=== PATIENT | male | born 1955 | race Two or more races ===

== ENCOUNTER 2024-09-11 10:59 | Inpatient (IN) | payer OTHER ==
[~2024-09-11] VITALS: Ht 175.3 cm; Wt 92.3 kg
[2024-09-11] VITALS (21 sets, daily range): BP systolic 106–174; BP diastolic 74–96; PULSE 95–121; RESP 15–38; TEMP 97.9–99.4; O2SAT 90–97
--- NOTE | 2024-09-11 11:14 | ECG ---
[facility] Test Date: 2024-09-11 Test Time: 11:10:40 Pat Name: BONG BARROS Department: ER Room: 0287T Gender: M Senior Education Specialist: ERICKA : 1955 Requested By: KALIN BOYD Order Number: [id number] Reading MD: Corby Villagomez Measurements Intervals [place] Rate: 118 P: 41 NH: 150 QRS: -51 QRSD: 110 T: 61 QT: 325 QTc: 456 Interpretive Statements Sinus tachycardia Inferior infarct, old Baseline wander in lead(s) I,aVR Electronically Signed On 09-13-2024 21:17:28 PDT by Corby Villagomez Please click the below link to view image of tracing.
[2024-09-11] MEDS: IPRATROPIUM BROM 0.5 MG/2.5ML INH SOL NEB ONE (11:32)
[2024-09-11] MEDS: ALBUTEROL SULF 2.5 MG/0.5ML(0.5%) NEB SOLN NEB ONE (11:33)
[2024-09-11 11:49] LABS: Chloride 104 mmol/L (98-107); Potassium 4.5 mmol/L (3.5-5.1)
[2024-09-11 11:50] LABS: Anion Gap 10 (5-15); Calcium 9.9 mg/dL (8.7-10.4); Carbon Dioxide 21 mmol/L (20-31)
[2024-09-11 11:54] LABS: Basophils # (auto) 0.1 10 ^3/uL (0-0.2); Platelet Count (auto) 121 10^3/uL (140-450); White Blood Cell 10.3 10^3/uL (4.4-10.8)
[2024-09-11 11:55] LABS: BUN/Creatinine Ratio 14.4 (10.0-20.0); Basophils % (auto) 0.8 % (0.0-2.0); Blood Urea Nitrogen 23 mg/dL (9-23); Eosinophils # (auto) 0.1 10 ^3/uL (0-0.8); Eosinophils % (auto) 0.5 % (0.0-7.0); Hematocrit 52.2 % (41.0-53.0); Hemoglobin 18.4 g/dL (13.5-17.5); Lymphocytes # (auto) 1.3 10 ^3/uL (0.4-5.4); Mean Corpuscular Hemoglobin 34.4 pg (28.0-32.0); Mean Corpuscular Hgb Conc. 35.2 g/dL (32.0-36.0); Mean Corpuscular Volume 97.6 fL (80.0-100.0); Monocytes # (auto) 1.4 10 ^3/uL (0-1.3); Monocytes % (auto) 13.2 % (0.0-12.0); Neutrophils # (auto) 7.5 10 ^3/uL (1.6-8.6); Neutrophils % (auto) 72.5 % (37.0-80.0); Nucleated Red Blood Cells % 0.1 %; Red Blood Cells 5.35 10^6/uL (4.5-5.90); Red Cell Distribution Width 13.6 % (11.8-14.3)
[2024-09-11 12:00] LABS: Glucose 124 mg/dL (74-106); Sodium 135 mmol/L (136-145)
[2024-09-11 12:01] LABS: INR 1.08 (0.9-1.15); Partial Thromboplastin Time 31.4 SEC (24.5-34.5); Prothrombin Time 11.4 sec (9.3-11.8)
--- NOTE | 2024-09-11 12:10 | ED.PDOC ---
SOB-HPI HPI Comments 69 y/o M presents with c/o shortness of breath, nonproductive cough, and chest- wall discomfort described as tightness. Patient endorses on having symptoms for the past 2-3 weeks, that worsened after doing yard work this morning. He reports only history of Hepatitis C, HTN, and Bipolar Disorder. Denies any congestion, fever, chills, edema or further associated symptoms. Upon arrival to ED, patient was found with a SpO2 of 92%RA. Chief Complaint: Shortness of Breath Time Seen by MD: 11:00 Primary Care Provider: GERMAINE Reviewed notes: Nurses Notes, Medications, Allergies Information Source: Patient Mode of Arrival: Ambulatory Severity: Moderate Timing: Weeks Duration: Since onset Context: With Light Exertion Past Medical History PAST MEDICAL HISTORY: HTN, Liver (Hepatitis C) Past Medical History (Other): Bipolar Disorder Surgical History: Appendectomy, Hernia Repair (3x), Tonsillectomy Surgical History (Other): Bilateral shoulder surgery Family History Family History: Unknown Social History Smoker: Non-Smoker Alcohol: Denies ETOH Use Drugs: Denies Drug Use Lives In: Home All Other Systems: Reviewed and Negative (Comprehensive systems review obtained and negative except for what is stated in the HPI.) Physical Exam General Appearance: Mild Distress HEENT: Other (Pupils and face symmetric. Moist mucous membranes. Mild perioral cyanosis) Neck: Full Range of Motion, Normal Inspection Respiratory: Accessory Muscle Use, Lungs Clear, Normal Breath Sounds, Respiratory Distress (Mild) Cardiovascular: No Edema, No JVD, Tachycardia Breast Exam: Deferred Gastrointestinal: Non Tender, Soft Genitalia: Deferred Pelvic: Deferred Rectal: Deferred Extremities: No calf tenderness, Normal inspection, Normal range of motion, Non-tender, No pedal edema Neurologic: Alert (Oriented x4), Normal Affect, Normal Mood, Other (Ambulatory) Cerebellar Function: NOT DONE Reflexes: NOT DONE Skin: Dry, Pallor, Warm Lymphatic: NOT DONE EKG EKG : Comments Sinus tach, rate 118, normal intervals, left axis deviation, possible old inferior infarct, nonspecific T change. Was a procedure done? Was a procedure done?: No Differential Dx Differential Diagnosis: Anxiety, Bronchitis, CHF, COPD, Hyperventilation, Myocardial infarction, Panic Attack, Pneumonia, Pulmonary Embolism, Respiratory Distress, URI X-Ray, Labs, Meds, VS Vital Signs Date Time Temp Pulse Resp B/P (MAP) Pulse Ox O2 Delivery O2 Flow Rate FiO2 09/11/24 16:00 100 09/11/24 15:07 100 24 96 Nasal Cannula* 2 28 09/11/24 15:07 100 19 137/87 (104) 94 09/11/24 14:26 98.5 116 18 99/69 (79) 96 98.5 09/11/24 12:17 09/11/24 12:10 118 09/11/24 11:35 16 98 Room Air* 0 21 09/11/24 11:24 Nasal Cannula* 2 28 09/11/24 11:23 97.7 113 19 109/72 (84) 96 97.7 09/11/24 11:10 118 09/11/24 11:04 98.1 123 22 106/68 (81) 92 98.1 09/11/24 11:04 22 92 Room Air* 0 21 Lab Test 09/11/24 12:27 09/11/24 11:46 09/11/24 11:20 Range/Units Troponin I High Sensitivity 22 19 </=54 ng/L Influenza Type A Antigen Negative Negative Influenza Type B Antigen Negative Negative SARS-CoV-2 Antigen (Rapid) Negative NEGATIVE White Blood Count 10.3 4.4-10.8 10^3/uL Red Blood Count 5.35 4.5-5.90 10^6/uL Hemoglobin 18.4 H 13.5-17.5 g/dL Hematocrit 52.2 41.0-53.0 % Mean Corpuscular Volume 97.6 80.0-100.0 fL Mean Corpuscular Hemoglobin 34.4 H 28.0-32.0 pg Mean Corpuscular Hemoglobin Concent 35.2 32.0-36.0 g/dL Red Cell Distribution Width 13.6 11.8-14.3 % Platelet Count 121 L 140-450 10^3/uL Mean Platelet Volume 8.0 6.9-10.8 fL Neutrophils (%) (Auto) 72.5 37.0-80.0 % Lymphocytes (%) (Auto) 13.0 10.0-50.0 % Monocytes (%) (Auto) 13.2 H 0.0-12.0 % Eosinophils (%) (Auto) 0.5 0.0-7.0 % Basophils (%) (Auto) 0.8 0.0-2.0 % Neutrophils # (Auto) 7.5 1.6-8.6 10 ^3/uL Lymphocytes # (Auto) 1.3 0.4-5.4 10 ^3/uL Monocytes # (Auto) 1.4 H 0-1.3 10 ^3/uL Eosinophils # (Auto) 0.1 0-0.8 10 ^3/uL Basophils # (Auto) 0.1 0-0.2 10 ^3/uL Nucleated Red Blood Cells 0.1 % Prothrombin Time 11.4 9.3-11.8 sec Prothrombin Time INR 1.08 0.9-1.15 Activated Partial Thromboplast Time 31.4 24.5-34.5 SEC D-Dimer, Quantitative 22.02 H 0.0-0.49 mg/L FEU Sodium Level 135 L 136-145 mmol/L Potassium Level 4.5 3.5-5.1 mmol/L Chloride Level 104 98-107 mmol/L Carbon Dioxide Level 21 20-31 mmol/L Anion Gap 10 5-15 Blood Urea Nitrogen 23 9-23 mg/dL Creatinine 1.60 H 0.700-1.30 mg/dL Glomerular Filtration Rate Calc 46 >90 mL/min BUN/Creatinine Ratio 14.4 10.0-20.0 Serum Glucose 124 H 74-106 mg/dL Lactic Acid Level 1.6 0.4-2.0 mmol/L Calcium Level 9.9 8.7-10.4 mg/dL B-Type Natriuretic Peptide 15.90 0-100 pg/mL Current Medications Medications (Trade) Dose Ordered Sig/Serenity Route Start Time Stop Time Status Last Admin Albuterol (Ventolin Medneb) 5 mg ONCE ONCE NEB 09/11/24 11:15 09/11/24 11:16 DC 09/11/24 11:33 Ipratropium Williamson (Atrovent Medneb) 0.5 mg ONCE ONCE NEB 09/11/24 11:15 09/11/24 11:16 DC 09/11/24 11:32 Sodium Chloride 1,000 ml @ 1,000 mls/hr Q1H ONCE IV 09/11/24 13:45 09/11/24 14:56 DC 09/11/24 14:29 Heparin Sodium (Porcine) 7,000 units ONCE ONCE IV 09/11/24 14:30 09/11/24 14:31 DC 09/11/24 15:57 Heparin Sodium/ Dextrose 250 ml @ 16 mls/hr [id number] IV 09/11/24 14:30 09/11/24 16:06 PROCEDURE(s): CXRP - CHEST PORTABLE REASON: sob ORDER NUMBER(s): [id number], ACCESSION NUMBER(s): [id number] EXAM: XY CHEST PORTABLE Indication: sob Technique: Single frontal view of the chest was obtained Comparison: None FINDINGS: Lines and Tubes: None Lungs: No focal consolidation. Pleura: No effusion. No pneumothorax. Cardiomediastinal contours: Unremarkable. Atherosclerotic vascular calcifications of the thoracic aorta are noted. Bones: No acute osseous abnormality. IMPRESSION: No acute cardiopulmonary disease. EDURE(s): CTACH - CT ANGIO CHEST CONTRAST REASON: hypoxia sob hi dimer r/o pe ORDER NUMBER(s): [id number], ACCESSION NUMBER(s): [id number] CT CT ANGIO CHEST CONTRAST INDICATION: hypoxia sob hi dimer r/o pe : 69 old Male hypoxia sob hi dimer r/o pe EXAM DATE: 09/11/2024 01:55 PM COMPARISON: None RADIATION DOSE: CTDIvol: 18.5 mGy, DLP: 673.72 mGy*cm PROCEDURE: Helical CT angiographic images were obtained of the chest with intravenous contrast. Sagittal and coronal reconstructions as well as MIPS are provided. Maximum intensity projections performed (MIPs) were performed for CTA. ADDITIONAL IMAGES / REFORMATS: None All CT scans at this medical facility are performed using dose modulation te chniques as appropriate to a performed exam including the following: Automated exposure control was utilized; adjustment of the MA and/or KV according to patient size; and use of iterative reconstruction technique. FINDINGS: Bones: Scattered degenerative changes are noted in the visualized osseous structures. Visualized Abdomen: Unremarkable. Chest Wall: Normal. Soft tissues: Normal. Mediastinum: Normal. Heart: Mild RV dilation. Vessels: Large filling defects in the visualized pulmonary arteries including the segmental and subsegmental pulmonary arteries. Prominent noncalcified mural thrombus in the thoracic aorta. Lymph Nodes: Normal. Pleura: Normal. Airways: Normal. Lung: Bibasilar atelectasis. Other: None IMPRESSION: Saddle pulmonary embolism in the visualized bilateral pulmonary arteries including the segmental and subsegmental pulmonary arteries. Mild RV dilation. Critical Result: Pulmonary Emboli Findings discussed with Dr. Saavedra at 09/11/2024 02:27 PM and acknowledged receipt and understanding of the findings. X-Ray, Labs, Meds, VS Comment 69-year-old male with a history of hypertension, liver disease and bipolar disorder complaining of chest discomfort, shortness of breath and dyspnea on mild exertion Vitals remarkable for heart rate 118 Exam remarkable for tachycardia and clear lungs with mild respiratory distress Rhythm strip independently interpreted by me: Sinus tach, rate one hundred eighteen, no ectopy. Chest x-ray IMPRESSION: No acute cardiopulmonary disease. CTA chest: IMPRESSION: Saddle pulmonary embolism in the visualized bilateral pulmonary arteries including the segmental and subsegmental pulmonary arteries. Mild RV dilation. Critical Result: Pulmonary Emboli CBC unremarkable, basic metabolic panel remarkable for creatinine 1.6, BNP and 2 serial troponins negative, lactate normal, D-dimer 22.02 Patient treated with the following in the ED: Albuterol 5 mg/Atrovent 0.5 mg nebulized, 1 L 0.9 normal saline IV bolus I discussed the risks, benefits and alternatives to treatment with regard to CT angio chest to rule out PE in light of patient's creatinine of 1.6. Patient and agreed that he should proceed with CT. Case discussed with Dr. Biggs radiology who felt the patient is a candidate for thrombectomy. He recommended starting the patient on heparin and obtaining cardiac echo, as there is some evidence of right heart strain on CT. Case discussed with [facility] who authorized us to keep the patient here. Authorization [id number] Time of 1ST Reevaluation: 11:30 Reevaluation 1ST: Unchanged Patient Education/Counseling: Diagnosis, Treatment Family Education/Counseling: No Family Present Departure 1 Departure Time of Disposition: 14:00 Impression: Primary Impression: Saddle pulmonary embolus Qualified Codes: I26.92 - Saddle embolus of pulmonary artery without acute cor pulmonale Disposition: ADMITTED INPATIENT Admit to: [facility] Condition: Serious Critical Care Note Critical Care Time?: Yes (1 hr-critical care time only) Critical care comment: Critical care time including multiple bedside re-evaluations, review of lab and imaging studies, and discussion of the case with the admitting provider. Patient is high risk for hemodynamic and/or respiratory decompensation. Stability Stability form required: No Heart Score Heart Score: Heart Score Response (Comments) Value History N/A 0 EKG N/A 0 Age N/A 0 Risk Factors N/A 0 Troponin N/A 0 Total 0 I personally scribed for KALIN MORENO MD ([email or web address]) on 09/11/24 at 12:10. Electronically submitted by Brent Flowers ([email or web address]). I personally scribed for KALIN MORENO MD ([email or web address]) on 09/11/24 at 12: 17. Electronically submitted by Brent Flowers ([email or web address]). I personally scribed for KALIN MORENO MD ([email or web address]) on 09/11/24 at 21:18. Electronically submitted by Brent Flowers ([email or web address]). KALIN MORENO MD September 11, 2024 12:10
[2024-09-11 12:40] LABS: COVID19 ANTIGEN SOFIA FIA NEGATIVE (NEGATIVE); Rapid Influenza A Negative (Negative); Rapid Influenza B Negative (Negative)
--- NOTE | 2024-09-11 12:59 | DVH ---
EXAM: XY CHEST PORTABLE Indication: sob Technique: Single frontal view of the chest was obtained Comparison: None FINDINGS: Lines and Tubes: None Lungs: No focal consolidation. Pleura: No effusion. No pneumothorax. Cardiomediastinal contours: Unremarkable. Atherosclerotic vascular calcifications of the thoracic ao rta are noted. Bones: No acute osseous abnormality. IMPRESSION: No acute cardiopulmonary disease.
[2024-09-11] MEDS: IOHEXOL 350 MG/ML 100ML IJ ONE (14:29)
[2024-09-11] MEDS: SODIUM CHLORIDE 0.9% 1,000 ML IV ONE (14:29)
--- NOTE | 2024-09-11 14:35 | DVH ---
CT CT ANGIO CHEST CONTRAST INDICATION: hypoxia sob hi dimer r/o pe : 69 old Male hypoxia sob hi dimer r/o pe EXAM DATE: 09/11/2024 01:55 PM COMPARISON: None RADIATION DOSE: CTDIvol: 18.5 mGy, DLP: 673.72 mGy*cm PROCEDURE: Helical CT angiographic images were obtained of the chest with intravenous contrast. Sagi ttal and coronal reconstructions as well as MIPS are provided. Maximum intensity projections performe d (MIPs) were performed for CTA. ADDITIONAL IMAGES / REFORMATS: None All CT scans at this medical facility are performed using dose modulation techniques as appropriate t o a performed exam including the following: Automated exposure control was utilized; adjustment of th e MA and/or KV according to patient size; and use of iterative reconstruction technique. FINDINGS: Bones: Scattered degenerative changes are noted in the visualized osseous structures. Visualized Abdomen: Unremarkable. Chest Wall: Normal. Soft tissues: Normal. Mediastinum: Normal. Heart: Mild RV dilation. Vessels: Large filling defects in the visualized pulmonary arteries including the segmental and subse gmental pulmonary arteries. Prominent noncalcified mural thrombus in the thoracic aorta. Lymph Nodes: Normal. Pleura: Normal. Airways: Normal. Lung: Bibasilar atelectasis. Other: None IMPRESSION: Saddle pulmonary embolism in the visualized bilateral pulmonary arteries including the segmental and subsegmental pulmonary arteries. Mild RV dilation. Critical Result: Pulmonary Emboli Findings discussed with Dr. Saavedra at 09/11/2024 02:27 PM and acknowledged receipt and understanding of t findings.
--- NOTE | 2024-09-11 15:01 | CONS ---
Pharmacy Clinical Information: BOLUS 7000 UNITS HEPARIN IV, THEN INITIATE HEPARIN DRIP AT RATE 1600 UNITS/HR = 16 ML/HR PER PE/VTE PROTOCOL, PATIENT WT 86.9 KG APTT DRAW SCHEDULED FOR 2100 PER RX PROTOCOL STEPHANIE SIDHU PHARMACIST September 11, 2024 15:01
--- NOTE | 2024-09-11 15:39 | DVHHP2 ---
History of Present Illness Reason for Visit: sob History of Present Illness 69-year-old male with a past medical history of hypertension, chronic liver disease, hepatitis, bipolar disorder, depression, and chronic kidney disease, as well as a surgical history of tonsillectomy, hernia repair, bilateral shoulder surgery, and tonsillectomy, who presents with progressive shortness of breath ongoing for the past month. He reports worsening dyspnea with exertion, dizziness, and near-syncope, especially during routine activities such as yard work, which prompted today�s ED visit. While working outside, he developed chest tightness and a dry cough, without associated fever, chest pain, hemoptysis, or prior history of thromboembolic events. He denies any smoking or illicit drug use. In the emergency department, he was noted to be hypoxic with an SpO2 of 92% on room air. CT angiogram of the chest revealed a large saddle pulmonary embolism with involvement of bilateral segmental pulmonary arteries and evidence of mild right ventricular dilation. Initial labs were notable for creatinine 1.60, sodium 135, glucose 124, BNP 15.90, lactate 1.6, and CBC unremarkable. Troponins were negative x2, and influenza/COVID testing was negative. Lower extremity ultrasound confirmed a DVT. IR (Dr. Biggs) was consulted and deemed the patient a candidate for thrombectomy. He was started on a heparin infusion and is being admitted to the ICU for continued monitoring and possible interven tion to be completed in am. Past Medical History see hpi above Past Surgical History see hpi above Family History Reviewed, non-contributory to the management of this case. Past Social History The patient lives at home, denies smoking, alcohol or illicit drugs abuse. Review of Systems Constitutional: No: Fever, Chills, Sweats, Weakness, Malaise, Other Eyes: No: Pain, Vision change, Conjunctivae inflammation, Eyelid inflammation, Other, Redness ENT: No: Ear pain, Ear discharge, Nose pain, Nose discharge, Nose congestion, Mouth pain, Mouth swelling, Throat pain, Throat swelling, Other Respiratory: Cough, Shortness of breath, SOB with excertion; No: Dry, Wheezing, Hemoptysis, Pleuritic Pain, Sputum, Wheezing, Other Cardiovascular: Chest Pain; No: Palpitations, Orthopnea, Paroxysmal Noc. Dyspnea, Edema, Lt Headedness, Other Gastrointestinal: No: Nausea, Vomiting, Abdominal Pain, Diarrhea, Constipation, Melena, Hematochezia, Other Genitourinary: No Dysuria, No Frequency, No Incontinence, No Hematuria, No Retention, No Other Musculoskeletal: No: other, neck pain, shoulder pain, arm pain, back pain, hand pain, leg pain, foot pain Skin: No: Rash, Lesions, Jaundice, Bruising, Other Neurological: No: Weakness, Numbness, Incoordination, Change in speech, Confusion, Seizures, Other Allergies: Coded Allergies: Codeine (Verified Allergy, Unknown, 09/11/24) Penicillins (Verified Allergy, Unknown, 09/11/24) Medications Current Medications Medications Dose Ordered Sig/Serenity Route Start Time Stop Time Status Last Admin Dose Admin Heparin Sodium/ Dextrose 250 ml @ 16 mls/hr [id number] IV 09/11/24 14:30 Exam Vital Signs Vital Signs Date Time Temp Pulse Resp B/P (MAP) Pulse Ox O2 Delivery O2 Flow Rate FiO2 09/11/24 15:07 100 24 96 Nasal Cannula* 2 28 09/11/24 15:07 137/87 (104) 09/11/24 14:26 98.5 98.5 General Appearance: Alert, Oriented X3, Cooperative, No acute distress HEENT: Atraumatic, PERRLA, EOMI, Mucous membr. moist/pink Respiratory: Other (dimished lung sounds throughout ) Cardiovascular: Regular rate, Normal S1, Normal S2, No murmurs Abdominal: Normal bowel sounds, Soft, No tenderness, No hepatospenomegaly, No masses Extremities: No clubbing, No cyanosis, No edema, Normal pulses, No tenderness/swelling Skin: No rashes, No breakdown, No significant lesion Neuro: Normal gait, Normal speech, Strength at 5/5 X4 ext, Normal tone, Sensation intact, Cranial nerves 3-12 NL Psych/Mental Status: Mental status NL, Mood NL Labs/Xrays Labs Test 09/11/24 12:27 09/11/24 11:46 09/11/24 11:20 Range/Units Troponin I High Sensitivity 22 </=54 ng/L Influenza Type A Antigen Negative Negative Influenza Type B Antigen Negative Negative SARS-CoV-2 Antigen (Rapid) Negative NEGATIVE White Blood Count 10.3 4.4-10.8 10^3/uL Red Blood Count 5.35 4.5-5.90 10^6/uL Hemoglobin 18.4 H 13.5-17.5 g/dL Hematocrit 52.2 41.0-53.0 % Mean Corpuscular Volume 97.6 80.0-100.0 fL Mean Corpuscular Hemoglobin 34.4 H 28.0-32.0 pg Mean Corpuscular Hemoglobin Concent 35.2 32.0-36.0 g/dL Red Cell Distribution Width 13.6 11.8-14.3 % Platelet Count 121 L 140-450 10^3/uL Mean Platelet Volume 8.0 6.9-10.8 fL Neutrophils (%) (Auto) 72.5 37.0-80.0 % Lymphocytes (%) (Auto) 13.0 10.0-50.0 % Monocytes (%) (Auto) 13.2 H 0.0-12.0 % Eosinophils (%) (Auto) 0.5 0.0-7.0 % Basophils (%) (Auto) 0.8 0.0-2.0 % Neutrophils # (Auto) 7.5 1.6-8.6 10 ^3/uL Lymphocytes # (Auto) 1.3 0.4-5.4 10 ^3/uL Monocytes # (Auto) 1.4 H 0-1.3 10 ^3/uL Eosinophils # (Auto) 0.1 0-0.8 10 ^3/uL Basophils # (Auto) 0.1 0-0.2 10 ^3/uL Nucleated Red Blood Cells 0.1 % Prothrombin Time 11.4 9.3-11.8 sec Prothrombin Time INR 1.08 0.9-1.15 Activated Partial Thromboplast Time 31.4 24.5-34.5 SEC D-Dimer, Quantitative 22.02 H 0.0-0.49 mg/L FEU Sodium Level 135 L 136-145 mmol/L Potassium Level 4.5 3.5-5.1 mmol/L Chloride Level 104 98-107 mmol/L Carbon Dioxide Level 21 20-31 mmol/L Anion Gap 10 5-15 Blood Urea Nitrogen 23 9-23 mg/dL Creatinine 1.60 H 0.700-1.30 mg/dL Glomerular Filtration Rate Calc 46 >90 mL/min BUN/Creatinine Ratio 14.4 10.0-20.0 Serum Glucose 124 H 74-106 mg/dL Lactic Acid Level 1.6 0.4-2.0 mmol/L Calcium Level 9.9 8.7-10.4 mg/dL B-Type Natriuretic Peptide 15.90 0-100 pg/mL Assessment/Plan Assessment/Plan 69-year-old male with a saddle pulmonary embolism and confirmed DVT, with mild RV strain and ongoing hypoxia. History of CKD, liver disease, and psychiatric comorbidities. acute Saddle Pulmonary Embolism with RV Strain Found on CTA of the chest ordered Heparin protocol bolus initiated in the ER PTT every 6 hours Monitor for bleeding Order echo to check heart strain Follow-up results Order Doppler bilateral lower extremity rule out DVT Monitor for respiratory distress Keep sats greater than 92%., cont o2 er spoke with IR Dr. Biggs felt pt was candidate for thrombectomy, will need to follow up consider cards consult if abnormal echo Admit to ICU Repeat ABG if respiratory status deteriorates acute Deep Vein Thrombosis on left Lower extremity ultrasound positive Plan: Continue anticoagulation with IV heparin Monitor CBC, coagulation panel daily No thrombolytics unless indicated by clinical deterioration will need to consider hematology workup acute Hypoxia resp failure likely from pe SpO2 92% on RA, stable on oxygen Plan: Oxygen via nasal cannula to maintain sats >94% Monitor ABGs and respiratory rate Incentive spirometry influenza and covid negative chronic problems Chronic Kidney Disease Avoid nephrotoxic agents Monitor renal function daily Chronic Liver Disease / Hepatitis Bipolar Disorder and Depression FEN / PROPHYLAXIS (PPx) Fluids/Electrolytes/Nutrition IV fluids as needed, monitor for volume overload Advance diet as tolerated DVT Prophylaxis Therapeutic anticoagulation already in place Avoid mechanical prophylaxis due to DVT GI Prophylaxis Pantoprazole 40 mg IV daily (stress ulcer prophylaxis in ICU) DISPOSITION Admit to ICU for management of saddle PE with RV strain and DVT. Monitor hemodynamics and respiratory status. Echocardiogram and interventional evaluation pending. Initiate full anticoagulation, and prepare for thrombectomy if indicated Plan discussed with: Patient Date of Service: September 11, 2024 Billing Provider: DARSHANA DUMONT DNP Common Visit Codes: [id number] INP/OBS CARE (HIGH), [id number] CARE 30- 74 MIN (Total critical care time: Approximately 45 minutes This critical care time included obtaining a history; examining the patient; pulse oximetry; ordering and review of studies; arranging urgent treatment with development of a management plan; evaluation of patient's response to treatment; frequent reassessment; and, discussions with other providers.) DARSHANA DUMONT DNP September 11, 2024 15:39
[2024-09-11] MEDS: HEPARIN SODIUM (PORCINE) 5000 UNITS/ML 1ML VIAL IV ONE (15:57)
[2024-09-11] MEDS: HEPARIN DRIP/D5W 100UNITS/ML 250 ML IV SCH ×2 (16:06→23:52)
[2024-09-11] MEDS ORDERED: MORPHINE SULFATE INJ 2 MG/ml SYRG IV PRN (16:15)
[2024-09-11] MEDS ORDERED: DOCUSATE SOD 100 MG CAP PO PRN (16:15)
[2024-09-11] MEDS ORDERED: NITROGLYCERIN 0.4 MG SL TAB SL PRN ×2 (16:15)
[2024-09-11] MEDS ORDERED: ONDANSETRON HCL 4 MG/2 ML VIAL IV PRN (16:15)
--- NOTE | 2024-09-11 16:54 | DVH ---
Bilateral lower extremity venous duplex Clinical History: eval for dvt Comparison: None Technique: Duplex Doppler evaluation of the deep venous systems of both lower extremities from the common femora l veins to the popliteal veins including color Doppler and spectral/pulsed waveform analysis was perf ormed. Findings: RIGHT SIDE: The common femoral vein demonstrates appropriate compressibility and waveform variability. There is compressibility/patency of the great saphenous vein at the proximal thigh. The femoral vein demonstrates appropriate compressibility and waveform variability. The deep femoral vein demonstrates appropriate compressibility and waveform variability. The popliteal vein demonstrates appropriate compressibility and waveform variability. There is normal compressibility at the tibioperoneal trunk. LEFT SIDE: The common femoral vein demonstrates appropriate compressibility and waveform variability. There is compressibility/patency of the great saphenous vein at the proximal thigh. The femoral vein demonstrates appropriate compressibility and waveform variability. The deep femoral vein demonstrates appropriate compressibility and waveform variability. The popliteal vein demonstrates intraluminal thrombus and noncompressibility.. There is noncompressibility of the posterior tibial vein. Impression: . No right DVT. Positive DVT in the left popliteal vein and posterior tibial vein. Findings discussed by lab animal technologist with DAMARIS Miller at time of exam.
[2024-09-11 16:58] LABS: INR 1.25 (0.9-1.15)
[2024-09-11 21:38] LABS: INR 1.19 (0.9-1.15); Prothrombin Time 12.4 sec (9.3-11.8)
[2024-09-11 21:47] LABS: Partial Thromboplastin Time > 139.0 SEC (24.5-34.5)
[2024-09-12] VITALS (29 sets, daily range): BP systolic 109–133; BP diastolic 48–90; PULSE 76–108; RESP 15–36; TEMP 97.9–99; O2SAT 90–97
[2024-09-12 05:18] LABS: Basophils # (auto) 0.1 10 ^3/uL (0-0.2); Eosinophils # (auto) 0.1 10 ^3/uL (0-0.8); Hemoglobin 15.8 g/dL (13.5-17.5); Lymphocytes # (auto) 1.4 10 ^3/uL (0.4-5.4); Monocytes # (auto) 1.2 10 ^3/uL (0-1.3); Nucleated Red Blood Cells % 0.1 %
[2024-09-12 05:23] LABS: Basophils % (auto) 1.2 % (0.0-2.0); Eosinophils % (auto) 1.7 % (0.0-7.0); Hematocrit 45.5 % (41.0-53.0); Lymphocytes % (auto) 17.5 % (10.0-50.0); Mean Corpuscular Hemoglobin 33.9 pg (28.0-32.0); Mean Corpuscular Hgb Conc. 34.7 g/dL (32.0-36.0); Mean Corpuscular Volume 97.8 fL (80.0-100.0); Neutrophils # (auto) 5.3 10 ^3/uL (1.6-8.6); Neutrophils % (auto) 64.6 % (37.0-80.0); Platelet Count (auto) 105 10^3/uL (140-450); Red Blood Cells 4.65 10^6/uL (4.5-5.90); Red Cell Distribution Width 13.4 % (11.8-14.3); White Blood Cell 8.1 10^3/uL (4.4-10.8)
[2024-09-12 05:30] LABS: Alanine Aminotransferase 37 U/L (7-40); Albumin 4.1 g/dL (3.2-4.8); Alkaline Phosphatase 57 U/L (46-116); Anion Gap 9 (5-15); Aspartate Aminotransferase 31 U/L (13-40); BUN/Creatinine Ratio 15.1 (10.0-20.0); Blood Urea Nitrogen 21 mg/dL (9-23); Carbon Dioxide 23 mmol/L (20-31); Chloride 106 mmol/L (98-107); Sodium 138 mmol/L (136-145); Total Protein 6.7 g/dL (5.7-8.2)
[2024-09-12 05:40] LABS: Bilirubin, Total 1.9 mg/dL (0.2-1.0); Glucose 122 mg/dL (74-106)
[2024-09-12 06:44] LABS: INR 1.12 (0.9-1.15); Prothrombin Time 11.7 sec (9.3-11.8)
[2024-09-12 06:58] LABS: Partial Thromboplastin Time 136.4 SEC (24.5-34.5)
[2024-09-12] MEDS: HEPARIN DRIP/D5W 100UNITS/ML 250 ML IV SCH ×2 (08:03→17:59)
--- NOTE | 2024-09-12 08:30 | CONS ---
Pharmacy Clinical Information: NEW RATE HEP 10 ML/HR (SINCE APTT = 136.4) @0502 ON 09/12 PER RX PROTOCOL. NEXT APTT DELVIS @1400 TODAY 09/12 JOE OCAMPO AWARE AND ALREADY STARTED 10 ML/HR @0802 NARCISO WHALEY PHARMACIST September 12, 2024 08:30
[2024-09-12] MEDS ORDERED: DULO20CA PO (09:04)
[2024-09-12] MEDS ORDERED: LISI10TA34 PO (09:04)
[2024-09-12] MEDS ORDERED: OLAN1TAB7 PO (09:04)
[2024-09-12] MEDS ORDERED: ASPirin 81 mg TAB PO SCH (10:00)
[2024-09-12 10:55] LABS: INR 1.13 (0.9-1.15); Partial Thromboplastin Time 54.3 SEC (24.5-34.5); Prothrombin Time 11.8 sec (9.3-11.8)
[2024-09-12] MEDS: IODIXANOL 320MG/ML 100ML BTL IV ONE (11:45)
[2024-09-12] MEDS: HEPARIN IN NS 1000Units/500mL 1,500 ML ONE (11:45)
[2024-09-12] MEDS: fentaNYL CITRATE 100 MCG/2 ML VL ONE (11:53)
[2024-09-12] MEDS: MIDAZOLAM HCL 2MG/2ML 2ml VIAL (1mg/ml) ONE (11:53)
[2024-09-12] MEDS: LIDOCAINE 2%HCL (LOCAL ANESTH.) INJ 20ML MDV ONE (11:53)
--- NOTE | 2024-09-12 13:43 | DVHPN2 ---
Progress Note Date Seen: September 12, 2024 Medical Necessity Reason Pt with a Central, PICC or Fol: No Subjective Patient reports: No new complaints Review of Systems: HEENT:Normal, CVS:Normal, RESPIRATORY:Normal, GI:Normal, :Normal, MSK:Normal, NEURO:Normal Objective vital signs Vital Sign Date Time Temp Pulse Resp B/P (MAP) Pulse Ox O2 Delivery O2 Flow Rate FiO2 09/12/24 08:00 88 18 94 Nasal Cannula* 2 28 09/12/24 08:00 97.9 119/77 (91) 97.9 Total Intake and Output 09/11/24 09/11/24 09/12/24 15:00 23:00 07:00 Intake Total 1109 ml 331 ml Output Total 1300 ml Balance 1109 ml -969 ml medications Current Medications Medications Dose Ordered Sig/Serenity Route Start Time Stop Time Status Last Admin Dose Admin Ondansetron HCl 4 mg Q4HP PRN IV 09/11/24 16:15 Docusate Sodium 100 mg BIDPRN PRN PO 09/11/24 16:15 Morphine Sulfate 2 mg Q4HPRN PRN IV 09/11/24 16:15 Nitroglycerin 0.4 mg Q5MP PRN SL 09/11/24 16:15 Aspirin 81 mg DAILY PO 09/12/24 10:00 Heparin Sodium/ Dextrose 250 ml @ 10 mls/hr Q24H IV 09/12/24 08:00 09/12/24 08:03 10 MLS/HR Pantoprazole Sodium 40 mg DAILY IV 09/13/24 10:00 Examination: GENERAL:Normal, HEENT:Normal, NECK:Normal, LUNGS:Normal, LUNGS:Abnormal (on oxygen), CVS:Normal, ABDOMEN:Normal, MSK:Normal, SKIN:Normal, NEURO:Normal, :Normal laboratory and microbiology Laboratory Tests 09/12/24 05:02 Test 09/12/24 05:02 Range/Units Serum Glucose 122 H 74-106 mg/dL Microbiology Date/Time Source Procedure Growth Status 09/11/24 11:20 Blood Blood Culture - Preliminary NO GROWTH AFTER 24 HOURS OF INCUBATION. Resulted Problem List/Assessment/Plan Problem List/Assessment/Plan #1 acute resp failure: on oxygen #2 massive pe: heparin, thrombectomy #3 left leg dvt #4 hepatitis: hep panel #5 acute renal failure ?vasomotor nephropathy #6 bipolar disorder #7 htn #8 thrombocytopenia; monitor Plan discussed with: Other (rn) My Orders My Orders Orders - BRII SCOTT MD Procedure Category Date Status Time Urinalysis LAB 09/12/24 Uncollected 11:57 Pantoprazole PHA 09/13/24 In Process (Protonix) 10:00 Perc.Arterial XY 09/12/24 Taken Thrombectomy 12:49 Critical Care Time (mins): 39 (critical care time excluding procedures was 39 mins) Date of Service: September 12, 2024 Billing Provider: BRII SCOTT MD Common Visit Codes: [id number]-[id number] CARE 30-74 MIN BRII SCOTT MD September 12, 2024 13:43
[2024-09-12 14:51] LABS: Hepatitis A Ab IgM Negative; Hepatitis B Core IgM Negative (Negative); Hepatitis B Surface Antigen Negative (Negative)
[2024-09-12 14:54] LABS: Hepatitis C Antibody Positive (Negative)
[2024-09-12] MEDS: PANTOPRAZOLE 40 MG/10 ML VIAL INJ IV ONE (15:33)
[2024-09-12 17:05] LABS: INR 1.08 (0.9-1.15); Partial Thromboplastin Time 47.1 SEC (24.5-34.5); Prothrombin Time 11.4 sec (9.3-11.8)
--- NOTE | 2024-09-12 17:53 | CONS ---
Pharmacy Clinical Information: INCREASED HEPARIN RATE TO 12 ML/HR OR 1200 UNITS/HR SINCE APTT = 47.1 @1630 09/12 PER RX PROTOCOL NEXT DELVIS APTT @9145 ON 09/12 PEYTON OCAMPO AWARE AND REPEAT BACK ORDER OF CURRENT HEP RATE 12 ML/HR NARCISO WHALEY PHARMACIST September 12, 2024 17:53
[2024-09-12 23:44] LABS: INR 1.11 (0.9-1.15); Prothrombin Time 11.6 sec (9.3-11.8)
[2024-09-12 23:52] LABS: Partial Thromboplastin Time 78.9 SEC (24.5-34.5)
[2024-09-13] VITALS (8 sets, daily range): BP systolic 102–131; BP diastolic 54–79; PULSE 80–108; RESP 16–20; TEMP 97.9–98.8; O2SAT 91–97
[2024-09-13] MEDS: HEPARIN DRIP/D5W 100UNITS/ML 250 ML IV SCH ×3 (00:15→16:15)
--- NOTE | 2024-09-13 06:39 | DVH ---
EXAM: XR Chest, 1 View CLINICAL INDICATION: RESP FAILURE TECHNIQUE: Frontal view of the chest. COMPARISON: XY CHEST PORTABLE on DOS: 09/11/24 FINDINGS: LUNGS AND PLEURAL SPACES: Unremarkable. No consolidation. No pneumothorax. HEART: Unremarkable. No cardiomegaly. MEDIASTINUM: Unremarkable. Normal mediastinal contour. BONES/JOINTS: Unremarkable. No acute fracture. OTHER FINDINGS: . IMPRESSION: No acute cardiopulmonary process.
[2024-09-13 07:10] LABS: Basophils # (auto) 0 10 ^3/uL (0-0.2); Basophils % (auto) 0.5 % (0.0-2.0); Eosinophils # (auto) 0.2 10 ^3/uL (0-0.8); Eosinophils % (auto) 2.2 % (0.0-7.0); Hematocrit 42.4 % (41.0-53.0); Hemoglobin 14.7 g/dL (13.5-17.5); Lymphocytes # (auto) 1.4 10 ^3/uL (0.4-5.4); Lymphocytes % (auto) 17.9 % (10.0-50.0); Mean Corpuscular Hemoglobin 33.9 pg (28.0-32.0); Mean Corpuscular Hgb Conc. 34.7 g/dL (32.0-36.0); Mean Corpuscular Volume 97.8 fL (80.0-100.0); Monocytes # (auto) 0.9 10 ^3/uL (0-1.3); Monocytes % (auto) 11.9 % (0.0-12.0); Neutrophils # (auto) 5.4 10 ^3/uL (1.6-8.6); Neutrophils % (auto) 67.5 % (37.0-80.0); Platelet Count (auto) 118 10^3/uL (140-450); Red Blood Cells 4.34 10^6/uL (4.5-5.90); Red Cell Distribution Width 13.2 % (11.8-14.3)
[2024-09-13 07:13] LABS: INR 1.07 (0.9-1.15); Partial Thromboplastin Time 29.5 SEC (24.5-34.5); Prothrombin Time 11.3 sec (9.3-11.8)
[2024-09-13 07:17] LABS: Alanine Aminotransferase 25 U/L (7-40); Alkaline Phosphatase 54 U/L (46-116); Anion Gap 7 (5-15); BUN/Creatinine Ratio 11.7 (10.0-20.0); Blood Urea Nitrogen 15 mg/dL (9-23); Calcium 9.3 mg/dL (8.7-10.4); Carbon Dioxide 24 mmol/L (20-31); Chloride 107 mmol/L (98-107); Potassium 4.9 mmol/L (3.5-5.1); Sodium 138 mmol/L (136-145)
[2024-09-13 07:18] LABS: Total Protein 6.5 g/dL (5.7-8.2)
[2024-09-13 07:19] LABS: Albumin 3.9 g/dL (3.2-4.8); Aspartate Aminotransferase 22 U/L (13-40); Glucose 113 mg/dL (74-106)
[2024-09-13 07:21] LABS: Bilirubin, Total 1.8 mg/dL (0.2-1.0)
--- NOTE | 2024-09-13 09:05 | CONS ---
Pharmacy Clinical Information: HEPARIN PER PHARMACY SPOKE TO DAMARIS Sabillon REGARDING heparin dose change Current dose: 1000 units/hr CURRENT aPTT: 29.5 on 09/13/24 at 06:16 (Per DAMARIS Diaz the heparin pump was off due to battery when she came in and tried to increase the heparin drip rate) BOLUS: yes, 5000 units ivp x1 Increase (new dose): 1300 units/hr Date and time new dose started: 08:23 ON 09/13/2024 (per DAMARIS Diaz's note) Next aPTT: 09/13/2024 AT 14:30 DAMARIS Diaz READ BACK NEW DOSE: 1100 UNITS/HR GRACIELA West September 13, 2024 09:05
[2024-09-13] MEDS: OLANZapine 5 MG TAB PO SCH (09:13)
[2024-09-13] MEDS: PANTOPRAZOLE 40 MG/10 ML VIAL INJ IV SCH (09:13)
[2024-09-13] MEDS: HEPARIN SODIUM (PORCINE) 5000 UNITS/ML 1ML VIAL IV STA (09:15)
--- NOTE | 2024-09-13 10:27 | DVHDS2 ---
Discharge Summary Date of Admission September 11, 2024 at 16:11 Date of Discharge: September 13, 2024 Labs/Diagnostic Data: Laboratory Results Test 09/13/24 06:16 09/12/24 05:02 09/11/24 16:24 09/11/24 11:46 White Blood Count 8.0 10^3/uL (4.4-10.8) Red Blood Count 4.34 10^6/uL (4.5-5.90) Hemoglobin 14.7 g/dL (13.5-17.5) Hematocrit 42.4 % (41.0-53.0) Mean Corpuscular Volume 97.8 fL (80.0-100.0) Mean Corpuscular Hemoglobin 33.9 pg (28.0-32.0) Mean Corpuscular Hemoglobin Concent 34.7 g/dL (32.0-36.0) Red Cell Distribution Width 13.2 % (11.8-14.3) Platelet Count 118 10^3/uL (140-450) Mean Platelet Volume 8.5 fL (6.9-10.8) Neutrophils (%) (Auto) 67.5 % (37.0-80.0) Lymphocytes (%) (Auto) 17.9 % (10.0-50.0) Monocytes (%) (Auto) 11.9 % (0.0-12.0) Eosinophils (%) (Auto) 2.2 % (0.0-7.0) Basophils (%) (Auto) 0.5 % (0.0-2.0) Neutrophils # (Auto) 5.4 10 ^3/uL (1.6-8.6) Lymphocytes # (Auto) 1.4 10 ^3/uL (0.4-5.4) Monocytes # (Auto) 0.9 10 ^3/uL (0-1.3) Eosinophils # (Auto) 0.2 10 ^3/uL (0-0.8) Basophils # (Auto) 0 10 ^3/uL (0-0.2) Nucleated Red Blood Cells 0.0 % Prothrombin Time 11.3 sec (9.3-11.8) Prothrombin Time INR 1.07 (0.9-1.15) Activated Partial Thromboplast Time 29.5 SEC (24.5-34.5) Sodium Level 138 mmol/L (136-145) Potassium Level 4.9 mmol/L (3.5-5.1) Chloride Level 107 mmol/L (98-107) Carbon Dioxide Level 24 mmol/L (20-31) Anion Gap 7 (5-15) Blood Urea Nitrogen 15 mg/dL (9-23) Creatinine 1.28 mg/dL (0.700-1.30) Glomerular Filtration Rate Calc 61 mL/min (>90) BUN/Creatinine Ratio 11.7 (10.0-20.0) Serum Glucose 113 mg/dL (74-106) Calcium Level 9.3 mg/dL (8.7-10.4) Total Bilirubin 1.8 mg/dL (0.2-1.0) Aspartate Amino Transferase (AST) 22 U/L (13-40) Alanine Aminotransferase (ALT) 25 U/L (7-40) Alkaline Phosphatase 54 U/L (46-116) Total Protein 6.5 g/dL (5.7-8.2) Albumin 3.9 g/dL (3.2-4.8) Hepatitis A IgM Antibody Negative Hepatitis B Surface Antigen Negative (Negative) Hepatitis B Core IgM Antibody Negative (Negative) Hepatitis C Antibody Positive (Negative) Troponin I High Sensitivity 24 ng/L (</=54) Influenza Type A Antigen Negative (Negative) Influenza Type B Antigen Negative (Negative) SARS-CoV-2 Antigen (Rapid) Negative (NEGATIVE) Test 09/11/24 11:20 D-Dimer, Quantitative 22.02 mg/L FEU (0.0-0.49) Lactic Acid Level 1.6 mmol/L (0.4-2.0) B-Type Natriuretic Peptide 15.90 pg/mL (0-100) Other Laboratory Tests 09/13/24 06:16 Brief Hx & Hospital Course: see dictated note Condition at Discharge: Fair Final Diagnosis/Problems List pe Discharge Disposition: Acute Care Facility Discharge Instruct/Medications Diet: Cardiac 2g Na,low cholest Activity: No Restrictions, As Tolerated Follow Up/Referral: [facility] with [place] Medications: per jul Discharge Statement: "Patient was advised to return to the ER or call 911 if any headaches, dizziness, shortness of breath, chest pain, abdominal pain, bleeding, fevers, or worsening of medical condition. Patient was counseled about treatment plan, medications, possible side effects, patient�verbalized understanding. All questions were answered to the best of my ability. This discharge took greater then 30 minutes in planning, reviewing documentation, counseling the patient, and discussing with other team members." ASSESSMENT ASSESSMENT Assessment pe Date of Service: September 13, 2024 Billing Provider: BRII SCOTT MD Common Visit Codes: 97648-SON/OBS DISCH DAY >30min Secondary Visit Codes: [id number] CARE PLAN 30 MINUTES BRII SCOTT MD September 13, 2024 10:26
--- NOTE | 2024-09-13 10:48 | DVHDS ---
DATE OF DISCHARGE: 09/13/2024 HISTORY OF PRESENT ILLNESS: The patient is a 69-year-old gentleman who was admitted with a history of shortness of breath and dizziness and near syncope. The patient has history of hep C, chronic liver disease, hypertension, bipolar disorder. HOSPITAL COURSE: The patient had a CT angiography that showed evidence of a saddle pulmonary embolism. The patient had lower extremity Doppler that showed positive DVT in the left popliteal vein and posterior tibial vein. He was seen in Interventional Radiology by Dr. Biggs. The patient underwent arterial thrombectomy on 09/12/2024. The patient will now be transferred to [place] for further management. The patient will be on medications as per med reconciliation. The patient's platelet count at time of transfer is 118. His creatinine is 1.28. The patient had an echocardiogram that is pending. Serology was positive for hep C, although he was treated for it. FINAL DIAGNOSES: Therefore: * Acute pulmonary embolism, status post thrombectomy. * Acute respiratory failure. * Left leg DVT. * History of hepatitis C. * Hypertension. * Bipolar disorder. * Thrombocytopenia. * [id number] renal failure, questionable vasomotor nephropathy. Time spent in discharge planning, review of plan with the patient and family at bedside and paperwork was 41 minutes. MD NARESH Gill/RASHAAD TID: [id number] RECEIPT: [id number]
[2024-09-13] MEDS: DULoxetine HCL 30 MG CAP PO ONE (11:17)
[2024-09-13 11:29] LABS: Urine Bacteria None Seen /hpf (None Seen)
[2024-09-13 11:36] LABS: Urine Blood Negative /uL (Negative); Urine Clarity Clear (Clear); Urine Color Yellow (Yellow); Urine Protein, UAD Negative (Negative); Urine Specific Gravity 1.019 (1.001-1.035); Urine Squamous Epithelial Cell None Seen /hpf (<5); Urine Urobilinogen 8 mg/dL (Negative); Urine WBC < 1 /HPF (0-3)
--- NOTE | 2024-09-13 12:42 | ECG ---
[facility] Test Date: 2024-09-11 Test Time: 11:10:40 Pat Name: BONG BARROS Department: ER Room: [facility]7T B Gender: M Diamond Setter: ERICKA : 1955 Requested By: KALIN BOYD Order Number: [id number] Reading MD: Corby Villagomez Measurements Intervals Naylor Rate: 118 P: 41 MA: 150 QRS: -51 QRSD: 110 T: 61 QT: 325 QTc: 456 Interpretive Statements Sinus tachycardia Inferior infarct, old Baseline wander in lead(s) I,aVR Electronically Signed On 09-13-2024 21:17:32 PDT by Corby Villagomez Please click the below link to view image of tracing.
--- NOTE | 2024-09-13 12:43 | DVHSR ---
APPROVED REPORT EXAM: Two-dimensional and M-mode echocardiogram with Doppler and color Doppler. Blood Pressure: 99/69 mmHg INDICATION saddle pe RISK FACTORS Hypertension: Height: 5'9, Weight: 191 DIMENSIONS LVDd4.3 (3.8-5.7cm)LA (2D) (1.9-4.0cm)Aortic Root3.6 (2.0-3.7cm) LVDs3.2 (2.5-4.0cm)LA (MM) (1.9-4.0cm)Aortic Cusp Exc1.7 (1.5-2.0cm) EF (%) 51.6 (55-70%)Rt. Atrium3.9 (1.9-4.0cm)Asc. Aorta3.8 cm IVSd1.0 (0.7-1.1cm)RV (D)4.0 (1.8-2.4cm) PWd1.1 (0.7-1.1cm) Mitral Valve MitralMitral Stenosis E wave0.65m/sMV Mean GR.mmHg A wave1.05m/sMV Peak GR.120mmHg E/A ratio0.62D MVAcm2 DECEL [id number] 1/2 Timems Aortic Valve Aortic ValveAortic Stenosis V11.00m/Kenzie Mean GR.3mmHg V21.11m/Kenzie Peak GR.6mmHg LVOT Diameter2.2 (1.8-2.4cm)Doppler AVA3.42cm2 Tricuspid Valve TR Velocity3.67m/s [id number] Other Information Quality : Technically LimitedRhythm : Technically limited study due to pt sitting up, patient position.body habitus. Conclusion lvef 60% moderate LVH normal rv function left atrium enlarged no severe valve abnormalities noted
[2024-09-13 15:03] LABS: INR 1.11 (0.9-1.15); Prothrombin Time 11.6 sec (9.3-11.8)
[2024-09-13 15:07] LABS: Partial Thromboplastin Time 107.6 SEC (24.5-34.5)
[2024-09-13] MEDS ORDERED: HEPARIN DRIP/D5W 100UNITS/ML 250 ML IV SCH (15:30)
--- NOTE | 2024-09-13 17:11 | CONS ---
Pharmacy Clinical Information: HEPARIN PER PHARMACY SPOKE TO DAMARIS Diaz REGARDING heparin dose change Current dose: 1300 units/hr CURRENT aPTT: 107.6 on 09/13/24 at 14:20 BOLUS: no Hold heparin drip for 1 hr (Emily held drip at 15:15) Then Decrease (new dose): 1100 units/hr Date and time new dose started: 16:15 ON 09/13/2024 Next aPTT: 09/13/2024 AT 22:15 DAMARIS Diaz READ BACK NEW DOSE: 1100 UNITS/HR GRACIELA West September 13, 2024 17:11
--- NOTE | 2024-09-13 19:24 | DVH ---
XY PERC.ARTERIAL THROMBECTOMY, HISTORY: PULMONARY ART THROMBECTOMY. 69 year old male with a saddle pulmonary embolus and a lower ext remity DVT. Presented with worsening shortness of breath and near syncope episode. While doing garden ing. Mildly elevated troponins. Mild RV dilation. PESI score 4. PROCEDURE: Informed consent was obtained. The patient was placed on the fluoroscopic table in supine position. The right groin was prepped with chlorhexidine which was allowed to dry and draped in the u sual sterile fashion. Time out was performed. Following administration of 1% local lidocaine, the com mon femoral vein was accessed with a micropuncture set under ultrasound guidance, and an image docume nting patency sent to PACS. A 6 Nauruan vascular sheath was placed over the wire and a venogram was p erformed of the iliac vein. A4 Nauruan angle pigtail catheter was advanced over the wire and then iwona uvered into the pulmonary artery. Pulmonary artery pressures were obtained. A pulmonary angiogram was obtained. The 6 Nauruan sheath was then exchanged for the 26 Nauruan inari sheath placed into the IVC. The glide advantage wire was exchanged over a catheter for a short floppy amplatz wire placed into t he pulmonary artery. Over the implants wire the 24 Nauruan anari aspiration catheter was advanced into the left pulmonary artery. Multiple aspirations were performed. The catheter was repositioned into t he right pulmonary artery. Multiple aspirations were performed. Blood was given back to the patient u sing Flow Saver. 3000 units of heparin was given while monitoring the ACT. A completion pulmonary ang iogram and pressure measurements was obtained. The catheters wires and sheaths were removed and a alonso w stasis device was used to close the common femoral vein with manual compression. No immediate compl ication was identified. DAP 1670 FLUOROSCOPY TIME: 12.7 minutes. CONTRAST USED: 80 mL . SEDATION: Dr. Partha Biggs was personally responsible for the administration of moderate sedation during the procedure performed, including the use of an independent trained observer who had no other duties during the procedure. The drugs utilized were IV fentanyl and versed (see nursing log for details). The total time of supervision by the attending physician was approximately 100 minutes. FINDINGS: Pulmonary angiogram shows a saddle pulmonary embolus with thrombus extending into the right and left pulmonary arteries. Completion pulmonary angiogram after mechanical aspiration thrombectomy shows decreased clot burden especially on the right pulmonary artery however thrombus remains on the left. Post thrombectomy pulmonary angiogram images show perfusion to the periphery of the pulmonary arteries. Pulmonary artery pressure measurements: Pre: (24) Post: (20) IMPRESSION: Mechanical aspiration thrombectomy of a saddle pulmonary embolus with significant thrombus removed fr om the pulmonary arteries, particularly of the right pulmonary artery. Completion pulmonary angiogram shows improved perfusion of the pulmonary arteries bilaterally, however some thrombus remains due to the chronicity of the clot. Pulmonary artery pressure measurements: Pre: (24) Post: (20) PLAN: Recommend resuming heparin drip and transition to oral anticoagulation per primary provider. Wi ll remove the flow stasis device after 24 hours. Keep the right leg straight for 2 hours.
[2024-09-13 22:44] LABS: INR 1.13 (0.9-1.15); Partial Thromboplastin Time 41.7 SEC (24.5-34.5); Prothrombin Time 11.8 sec (9.3-11.8)
[2024-09-14] MEDS ORDERED: DULoxetine HCL 30 MG CAP PO SCH (10:00)
== END 2024-09-13 22:42 | disposition short-term general hospital (02) | DRG 163 ==
LOC: ER 11:10 → OVERFLOW 16:11 → TELE-WESTW 09-12 17:48
PROVIDERS: ADMIT Internal Medicine; ATTEND Internal Medicine
PROC: 02CR3ZZ Extirpation of Matter from Left Pulmonary Artery, Percutaneous Approach (ICD-10-PCS; principal; 2024-09-12)
PROC: 02CQ3ZZ Extirpation of Matter from Right Pulmonary Artery, Percutaneous Approach (ICD-10-PCS; 2024-09-12)
PROC: B51B1ZZ Fluoroscopy of Right Lower Extremity Veins using Low Osmolar Contrast (ICD-10-PCS; 2024-09-12)
PROC: B31T1ZZ Fluoroscopy of Left Pulmonary Artery using Low Osmolar Contrast (ICD-10-PCS; 2024-09-12)
PROC: B31S1ZZ Fluoroscopy of Right Pulmonary Artery using Low Osmolar Contrast (ICD-10-PCS; 2024-09-12)
DX: I26.92 Saddle embolus of pulmonary artery without acute cor pulmonale (principal); J96.01 Acute respiratory failure with hypoxia; N17.0 Acute kidney failure with tubular necrosis; I82.432 Acute embolism and thrombosis of left popliteal vein; I82.442 Acute embolism and thrombosis of left tibial vein; N18.9 Chronic kidney disease, unspecified; D69.6 Thrombocytopenia, unspecified; F31.9 Bipolar disorder, unspecified; I12.9 Hypertensive chronic kidney disease with stage 1 through stage 4 chronic kidney disease, or unspecified chronic kidney disease; B19.20 Unspecified viral hepatitis C without hepatic coma; Z88.5 Allergy status to narcotic agent; Z88.0 Allergy status to penicillin; Z79.01 Long term (current) use of anticoagulants; Z79.899 Other long term (current) drug therapy
CPT/HCPCS: 36415; 37184; 71045; 71275; 80048; 80053; 80074; 81001; 83605; 83880; 84484; 85025; 85379; 85610; 85730; 86850; 86900; 86901; 87040; 87081; 87426; 87804; 93005; 93306; 93970; 94640; 99152; 99291; C1769; C1894; G0378; J2250; J2470; Q9967